=== PATIENT | female | born 1955 | race Caucasian/White ===

== ENCOUNTER 2020-11-16 14:27 | Outpatient (CLI) | payer OTHER ==
[~2020-11-16 14:27] MED LIST: CIPRO500 MG PO; FLAGYL500MG PO; FLUCONAZOLE150 MG PO; MYCOSTATIN100000 UNI PO; PROTONIX40 MG PO
== END 2020-11-16 14:50 | disposition home or self-care (01) ==
LOC: RAD 14:27
PROVIDERS: ATTEND Family Medicine
DX: M54.5 Low back pain (principal)

== ENCOUNTER 2021-12-24 09:57 | Outpatient (CLI) | payer OTHER | END 2021-12-24 09:59 | disposition home or self-care (01) | LOC: TOM 09:57 | PROVIDERS: ATTEND Obstetrics & Gynecology | DX: R19.00 Intra-abdominal and pelvic swelling, mass and lump, unspecified site (principal) ==